=== PATIENT | male | born 1965 | race African-American/Black ===

== ENCOUNTER 2016-12-03 21:44 | Emergency (ER) | payer SELFPAY ==
[2016-12-04 01:34] VITALS: BP 120/78
== END 2016-12-04 01:34 | disposition home or self-care (01) ==
LOC: ED 21:44
DX: J45.901 Unspecified asthma with (acute) exacerbation (principal)
CPT/HCPCS: J7613; J7644; Q0092

== ENCOUNTER 2018-01-10 19:20 | Emergency (ER) | payer MEDICAID ==
[~2018-01-10] VITALS: Ht 175.3 cm; Wt 113.8 kg
[2018-01-10 19:30] VITALS: Ht 175.3 cm; Wt 113.8 kg
[2018-01-11 00:39] VITALS: BP 128/75
== END 2018-01-11 00:39 | disposition home or self-care (01) ==
LOC: ED 19:20
DX: S83.91XA Sprain of unspecified site of right knee, initial encounter (principal); J45.909 Unspecified asthma, uncomplicated; Z90.89 Acquired absence of other organs; W01.0XXA Fall on same level from slipping, tripping and stumbling without subsequent striking against object, initial encounter; Y93.89 Activity, other specified; Y92.89 Other specified places as the place of occurrence of the external cause; Y99.8 Other external cause status